=== PATIENT | male | born 1970 | race Caucasian/White ===

== ENCOUNTER 2018-04-30 08:47 | Day surgery (SDC) | payer BC ==
[~2018-04-30 08:47] MED LIST: DEXAMETHASONE SOD PHOSPHATE 10 MG/ML 1 ML VIAL IV ONE; LACTATED RINGERS 1,000 ML IV SCH; LIDOCAINE 1% 20 ML VIAL (10MG/ML) FOR IV START INTRADERMA PRN; ONDANSETRON 4 MG/2 ML VIAL IVP ONE; SCOPOLAMINE 1.5MG/72HR PATCH TRANSDERM ONE; fentaNYL (PF) 50 MCG/ML 2 ML AMP IV PRN
--- NOTE | 2018-04-30 09:12 | P.GSHP ---
History of Present Illness H&P Date: 04/30/18 CHIEF COMPLAINT: Change in bowel habits HISTORY OF PRESENT ILLNESS: The patient is a 49-year-old female who presents for change in bowel habits. Lower endoscopy was offered for further evaluation and management. PAST MEDICAL HISTORY: Please see list. PAST SURGICAL HISTORY: Please see list. MEDICATIONS: Please see list. ALLERGIES: Please see list. SOCIAL HISTORY: No illicit drug use FAMILY HISTORY: No reports of Crohn disease or ulcerative colitis. REVIEW OF ORGAN SYSTEMS: CONSTITUTIONAL: No reports of fevers or chills. PHYSICAL EXAM: VITAL SIGNS: Stable GENERAL: Well-developed pleasant in no acute distress. HEENT: No scleral icterus. Extraocular movements grossly intact. Moist buccal mucosa. NECK: Supple without lymphadenopathy. CHEST: Unlabored respirations. Equal bilateral excursions. CARDIOVASCULAR: Regular rate and rhythm. Distal 2+ pulses. ABDOMEN: Soft, nontender, nondistended. MUSCULOSKELETAL: No clubbing, cyanosis, or edema. ASSESSMENT: 1. Change in bowel habits PLAN: 1. Recommend proceeding with a lower endoscopy Past Medical History Past Medical History: GERD/Reflux, Pneumonia Additional Past Medical History / Comment(s): Chronic back pain History of Any Multi-Drug Resistant Organisms: None Reported Past Surgical History: Back Surgery, Hernia Repair Additional Past Surgical History / Comment(s): LT INGUINAL HERNIA REPAIR CHILD,DISCECTOMY AND LAMENECTMY Past Anesthesia/Blood Transfusion Reactions: Motion Sickness, Postoperative Nausea & Vomiting (PONV) Past Psychological History: No Psychological Hx Reported Smoking Status: Never smoker Past Alcohol Use History: Occasional Past Drug Use History: None Reported - Past Family History Mother Family Medical History: GERD/Reflux, Hyperlipidemia Additional Family Medical History / Comment(s): PERICARDITIS Father Family Medical History: Coronary Artery Disease (CAD), Diabetes Mellitus, Pneumonia Additional Family Medical History / Comment(s): ANGIOPLASTY Medications and Allergies Home Medications Medication Instructions Recorded Confirmed Type Omeprazole [PriLOSEC] 20 mg PO DAILY 11/02/13 04/28/18 History Ibuprofen [Motrin Ib] 200 - 400 mg PO Q6H PRN 04/28/18 04/28/18 History Allergies Allergy/AdvReac Type Severity Reaction Status Date / Time hydromorphone HCl Allergy Rash/Hives Verified 04/28/18 10:58 [From Dilaudid]
[2018-04-30 09:22] VITALS: RESP 18; TEMP 99
[2018-04-30] MEDS ORDERED: LIDOCAINE 1% INJ 10MG/ML (20 ML MDV) ONE (09:44)
[2018-04-30] MEDS ORDERED: PROPOFOL 10 MG/ML 20 ML VIAL IV ONE (09:44)
--- NOTE | 2018-04-30 10:04 | P.PCN ---
Date of Procedure: 04/30/18 Description of Procedure: PREOPERATIVE DIAGNOSIS: Rectal bleeding Colonoscopy screening, first Family history of gastrointestinal tumors POSTOPERATIVE DIAGNOSIS: Rectal bleeding Colonoscopy screening, first Family history of gastrointestinal tumors Large tubular adenoma, rectum Internal hemorrhoids, grade 1 OPERATION: Colonoscopy to the ileocecal valve and appendiceal orifice. Colonoscopy with multiple hot snare polypectomies SURGEON: Randa Gee MD. ANESTHESIA: MAC. INDICATIONS: The patient is a 47-year-old male who presents with rectal bleeding at least twice in past 3 months He has a family history of gastrointestinal tumors. Benefits and risks were described and informed consent was obtained. DESCRIPTION OF PROCEDURE: The patient had undergone Gatorade, MiraLAX and Dulcolax prep. He had been brought into the operating room and laid in the left lateral decubitus position. After adequate intravenous sedation, the rectum was examined with 2% lidocaine jelly. No external hemorrhoids were encountered. The rectal tone was within normal limits. No lesions were palpated in the rectal vault. The prostate was unremarkable. An Olympus colonoscope was advanced until the ileocecal valve and appendiceal orifice were clearly viewed. The prep was fair with visualization of the mucosal folds. The scope was removed with visualization of each mucosal fold. No scattered diverticulosis was encountered. Findings include large polyp over 1 cm at the rectum at 10 cm from the anal verge. Separate polyp of 4 mm was also identified at 10 cm. Both were snare polypectomy. Large polyp of over 1 cm was addressed with multiple passes in piecemeal. No evidence of focal colitis was found. Retroflexion of the scope demonstrated grade 1 internal hemorrhoids without active bleeding or inflammation. The colon was desufflated. The patient had tolerated the procedure well. Withdrawal time was over 6 minutes. FINDINGS: Internal hemorrhoids grade 1 also identified without active bleeding. No external hemorrhoids No arteriovenous malformations No scattered diverticulosis was encountered. Removal of 2 polyps: - Snare polypectomy 10 cm from the anal verge, over 10 mm tubulovillous adenoma polyp, rectum. Large polyp of over 1 cm was addressed with multiple passes in piecemeal - Snare polypectomy 10 cm from the anal verge, 4 mm flat villous adenoma polyp. No focal colitis. RECOMMENDATIONS: 1. Recommend follow-up in one year, 2019, due to large rectal polyp Plan - Discharge Summary Discharge Rx Participant: No New Discharge Prescriptions: No Action Omeprazole [PriLOSEC] 20 mg PO DAILY Ibuprofen [Motrin Ib] 200 - 400 mg PO Q6H PRN PRN Reason: Pain Discharge Medication List Omeprazole [PriLOSEC] 20 mg PO DAILY 11/02/13 [History] Ibuprofen [Motrin Ib] 200 - 400 mg PO Q6H PRN 04/28/18 [History] Follow up Appointment(s)/Referral(s): Randa Gee MD [STAFF PHYSICIAN] - 05/20/18 (please call office to schedule your follow up appointment ) Patient Instructions/Handouts: *Surgery [facility] - (Anesthesia) Endoscopy Discharge Instructions, Rectal Bleeding (DC), Colorectal Polyps (GEN), Colonoscopy (GEN) Activity/Diet/Wound Care/Special Instructions: Follow-up colonoscopy one year, 2019 Discharge Disposition: HOME SELF-CARE
[2018-04-30 10:27] VITALS: BP 114/72; PULSE 67
--- NOTE | 2018-05-05 09:41 | CDI ---
Outpatient Documentation Clarification Form Date: 05/05/2018 CDS/Respiratory Therapist Assistant Name: Joe Boone Phone: If any questions, call Rashmi [facility]ines Transportation Planner at [phone] Patient Name: Javi Sanchez Admit Date: 04/30/2018 Discharge Date: 04/30/2018 ATTENTION: The [facility] Coding Staff appreciate your assistance in clarifying documentation. Please respond to the clarification below the line at the bottom and electronically sign. The [facility] Coding staff will review the response and follow-up if needed. Please note: Queries are made part of the Legal Health Record. If you have any questions, please contact the Transportation Planner. Dear Randa Rubin Two polyps were excised from 10cm from anal verge. Kindly clarify which anatomical location 10cm from anal verge denotes. Thank you for your kind consideration. PLEASE SEE AMENDED REPORT 05/07/18 @ 13:28 [facility]
== END 2018-04-30 10:44 | disposition home or self-care (01) ==
LOC: ORWHC2ENDO 08:47
PROVIDERS: ATTEND Surgery Plastic and Reconstructive Surgery
DX: D12.8 Benign neoplasm of rectum (principal); R19.4 Change in bowel habit; K64.0 First degree hemorrhoids; K62.5 Hemorrhage of anus and rectum; K21.9 Gastro-esophageal reflux disease without esophagitis; G89.29 Other chronic pain; Z79.899 Other long term (current) drug therapy; Z88.5 Allergy status to narcotic agent; Z80.0 Family history of malignant neoplasm of digestive organs; Z87.01 Personal history of pneumonia (recurrent); Z82.49 Family history of ischemic heart disease and other diseases of the circulatory system
CPT/HCPCS: 88305; 45385; J2001; J2704

== ENCOUNTER 2020-12-21 06:53 | Day surgery (SDC) | payer BC ==
[2020-12-19 11:08] VITALS: BMI 23.8
[~2020-12-21 06:53] MED LIST changes: -DEXAMETHASONE SOD PHOSPHATE 10 MG/ML 1 ML VIAL IV ONE; -LIDOCAINE 1% 20 ML VIAL (10MG/ML) FOR IV START INTRADERMA PRN; -ONDANSETRON 4 MG/2 ML VIAL IVP ONE; -SCOPOLAMINE 1.5MG/72HR PATCH TRANSDERM ONE; -fentaNYL (PF) 50 MCG/ML 2 ML AMP IV PRN
[2020-12-21 07:42] VITALS: RESP 16; TEMP 96.8
[2020-12-21] MEDS ORDERED: LIDOCAINE 1% (10MG/ML) FOR IV START INTRADERMA ONE (07:42)
[2020-12-21] MEDS ORDERED: LIDOCAINE 1% INJ 10MG/ML (20 ML MDV) ONE (08:32)
[2020-12-21] MEDS ORDERED: fentaNYL (PF) 50 MCG/ML 2 ML AMP ONE (08:32)
[2020-12-21] MEDS ORDERED: MIDAZOLAM 2 MG/2 ML VIAL ONE (08:32)
[2020-12-21] MEDS ORDERED: SUCCINYLCHOLINE CHLORIDE 100 MG/5 ML SYR IV ONE (08:32)
--- NOTE | 2020-12-21 08:35 | P.GSHP ---
History of Present Illness H&P Date: 12/21/20 CHIEF COMPLAINT: GERD and colon screen HISTORY OF PRESENT ILLNESS: The patient is a 50-year-old male who presents with gastroesophageal reflux disease and need for colon screen. Upper and lower endoscopy were offered for further evaluation and management. PAST MEDICAL HISTORY: Please see list. PAST SURGICAL HISTORY: Please see list. MEDICATIONS: Please see list. ALLERGIES: Please see list. SOCIAL HISTORY: No illicit drug use FAMILY HISTORY: No reports of Crohn disease or ulcerative colitis. REVIEW OF ORGAN SYSTEMS: CONSTITUTIONAL: No reports of fevers or chills. GI: Denies any blood in stools or constipation. PHYSICAL EXAM: VITAL SIGNS: Stable GENERAL: Well-developed pleasant in no acute distress. HEENT: No scleral icterus. Extraocular movements grossly intact. Moist buccal mucosa. NECK: Supple without lymphadenopathy. CHEST: Unlabored respirations. Equal bilateral excursions. CARDIOVASCULAR: Regular rate and rhythm. Distal 2+ pulses. ABDOMEN: Soft, nondistended. MUSCULOSKELETAL: No clubbing, cyanosis, or edema. ASSESSMENT: 1. Gastroesophageal reflux disease 2. Colon screen. PLAN: 1. Recommend proceeding with an upper and lower endoscopy Past Medical History Past Medical History: GERD/Reflux, Pneumonia Additional Past Medical History / Comment(s): Chronic back pain History of Any Multi-Drug Resistant Organisms: None Reported Past Surgical History: Back Surgery, Hernia Repair Additional Past Surgical History / Comment(s): LT INGUINAL HERNIA REPAIR CHILD. DISCECTOMY AND LAMINECTMY Past Anesthesia/Blood Transfusion Reactions: Motion Sickness, Postoperative Nausea & Vomiting (PONV) Past Psychological History: No Psychological Hx Reported Smoking Status: Never smoker Past Alcohol Use History: Occasional Past Drug Use History: None Reported - Past Family History Mother Family Medical History: GERD/Reflux, Hyperlipidemia Additional Family Medical History / Comment(s): PERICARDITIS Father Family Medical History: Coronary Artery Disease (CAD), Diabetes Mellitus, Pneumonia Additional Family Medical History / Comment(s): ANGIOPLASTY Medications and Allergies Home Medications Medication Instructions Recorded Confirmed Type No Known Home Medications 12/19/20 12/21/20 History Allergies Allergy/AdvReac Type Severity Reaction Status Date / Time hydromorphone HCl Allergy Rash/Hives Verified 12/21/20 07:42 [From Dilaudid] Surgical - Exam Vital Signs Temp Pulse Resp BP Pulse Ox 96.8 F L 73 16 139/79 98 12/21/20 07:41 12/21/20 07:41 12/21/20 07:41 12/21/20 07:41 12/21/20 07:41
--- NOTE | 2020-12-21 08:45 | P.PCN ---
Date of Procedure: 12/21/20 Description of Procedure: PREOPERATIVE DIAGNOSIS: Gastroesophageal reflux disease. POSTOPERATIVE DIAGNOSIS: Acute gastrointestinal bleeding Gastroesophageal reflux disease with erosive esophagitis Gastric ulcers OPERATION: Esophagogastroduodenoscopy with biopsies along antrum. SURGEON: Randa Gee MD ANESTHESIA: MAC. INDICATIONS: The patient is a 50-year-old female who presents with a history of reflux disease. Benefits and risks of the procedure were described. Informed consent was obtained. DESCRIPTION: The patient was brought into the endoscopy suite and laid in the left lateral decubitus position. An Olympus gastroscope was passed along the posterior oropharynx down to the distal esophagus where the squamocolumnar junction was encountered at 40 cm from the incisors. The stomach was entered and no bile reflux was found. Additional findings are listed below. Biopsies with cold forceps were obtained of the antrum. The first through third portion of the duodenum was examined and unremarkable. Retroflexion of the scope confirmed Hill grade 3 lower esophageal valve. The squamocolumnar junction demonstrated LA grade B erosive esophagitis. The stomach was desufflated. The patient tolerated the procedure well. FINDINGS: Squamocolumnar junction 40 cm from the incisors. Diaphragmatic hiatus at 40 cm. Hill grade 4 lower esophageal valve. LA grade B erosive esophagitis. No active duodenitis. Acute gastritis with recent bleed Punctate gastric ulcers with recent bleeding RECOMMENDATIONS: 1. Omeprazole 40 mg daily for 4 weeks 2. Carafate 1 g twice a day for 2 weeks 3. Repeat upper endoscopy in 4-6 weeks
--- NOTE | 2020-12-21 08:59 | P.PCN ---
Date of Procedure: 12/21/20 Description of Procedure: PREOPERATIVE DIAGNOSIS: Personal history of colon polyps Colonoscopy screening POSTOPERATIVE DIAGNOSIS: Ascending colon adenoma Sigmoid colon adenoma Internal hemorrhoids, grade 2 OPERATION: Colonoscopy to the ileocecal valve and appendiceal orifice, cecum Colonoscopy with hot snare polypectomy SURGEON: Randa Gee MD. ANESTHESIA: MAC. INDICATIONS: The patient is an 50-year-old male who present personal history of colon polyps. Last colonoscopy over 5 years. Benefits and risks were described and informed consent was obtained. DESCRIPTION OF PROCEDURE: The patient had undergone Sutab prep. The patient had been brought into the operating room and laid in the left lateral decubitus position. After adequate intravenous sedation, the rectum was examined with 2% lidocaine jelly. The prostate was unremarkable. External hemorrhoids were encountered. The rectal tone was within normal limits. No lesions were palpated in the rectal vault. An Olympus colonoscope was advanced until the cecum, ileocecal valve and appendiceal orifice were clearly viewed. The prep was good. No sigmoid diverticulosis was encountered. Colonic polyps were found and removed. No evidence of focal colitis was found. Retroflexion of the scope demonstrated grade 2 internal hemorrhoids without active bleeding or inflammation. The colon was desufflated. The patient had tolerated the procedure well. Withdrawal time was over 6 minutes. FINDINGS: Aronchick preparation quality scale 2 (1-5) Internal hemorrhoids, grade 2 External hemorrhoids, grade 2. No arteriovenous malformations. No sigmoid diverticulosis Removal of 2 polyps: - Snare polypectomy 20 cm from the anal verge, 5 mm tubulovillous adenoma polyp. - Snare polypectomy proximal ascending colon, 6 mm flat villous adenoma polyp. No focal colitis. RECOMMENDATIONS: Given severity of tubular adenomas, recommend repeat colonoscopy in 3 years, 2023 Plan - Discharge Summary Discharge Rx Participant: No New Discharge Prescriptions: New Sucralfate [Carafate] 1 gm PO BID #30 tablet Omeprazole [PriLOSEC] 40 mg PO DAILY #30 cap Discharge Medication List Omeprazole [PriLOSEC] 40 mg PO DAILY #30 cap 12/21/20 [Rx] Sucralfate [Carafate] 1 gm PO BID #30 tablet 12/21/20 [Rx] Follow up Appointment(s)/Referral(s): Randa Gee MD [STAFF PHYSICIAN] - 01/10/21 Patient Instructions/Handouts: Peptic Ulcer (GEN), Gastritis (DC), Diet for Stomach Ulcers and Gastritis (ED) Activity/Diet/Wound Care/Special Instructions: Repeat colonoscopy 3 years, 2023 Discharge Disposition: HOME SELF-CARE
[2020-12-21 09:21] VITALS: BP 113/74; PULSE 71
== END 2020-12-21 09:35 | disposition home or self-care (01) ==
LOC: ORWHC2ENDO 06:53
PROVIDERS: ATTEND Surgery Plastic and Reconstructive Surgery
DX: K25.4 Chronic or unspecified gastric ulcer with hemorrhage (principal); K21.00 Gastro-esophageal reflux disease with esophagitis, without bleeding; K29.50 Unspecified chronic gastritis without bleeding; K64.8 Other hemorrhoids; D12.2 Benign neoplasm of ascending colon; Z82.49 Family history of ischemic heart disease and other diseases of the circulatory system; Z83.3 Family history of diabetes mellitus; Z83.49 Family history of other endocrine, nutritional and metabolic diseases; Z88.5 Allergy status to narcotic agent
CPT/HCPCS: 45385; 43239; 88305; J2250; J2001; J3010; J0330

== ENCOUNTER → 2023-12-03 | Outpatient (CLI) | payer BC ==
--- NOTE | 2023-12-03 10:50 | XR ---
EXAMINATION TYPE: XR chest 2V DATE OF EXAM: 12/03/2023 COMPARISON: 08/21/2014 HISTORY: Shortness of breath TECHNIQUE: Frontal and lateral views of the chest are obtained. FINDINGS: Scattered senescent parenchymal changes noted. Hyperinflation compatible with COPD. No evidence for infiltrate. No evidence for atelectasis. Heart size is stable. Mediastinal structures are stable and grossly unremarkable. No evidence for hilar prominence. Degenerative changes dorsal spine. IMPRESSION: 1. No evidence for acute pulmonary disease.
== END | disposition home or self-care (01) ==
LOC: RADXRMAIN 10:24
PROVIDERS: ATTEND Family Medicine
DX: J20.9 Acute bronchitis, unspecified (principal)
CPT/HCPCS: 71046